=== PATIENT | male | born 1970 | race Caucasian/White ===

== ENCOUNTER 2016-05-07 00:41 | Emergency (ER) | payer OTHER ==
[2016-05-07] MEDS ORDERED: MORPHINE SULFATE 10 MG/ML INJ IV ONE ×4 (03:24→07:17)
--- NOTE | 2016-05-07 03:28 | ER Document Report ---
[id number] 30 DAYS: No <RICARDO ORNELAS - Last Filed: 05/08/16 02:15> - General Chief Complaint: Fall Injury Stated Complaint: FALL Notes: Patient is a 45-year-old male presents the ambulance after he slipped in his right yard. He has been drinking a cold today. He does not drink every day. He complains he cannot feels legs. He has difficulty moving his hands as well. He also says he has a lot of difficulty moving his legs. He says "I think I' m paralyzed". He complains of pain mainly in his lower back. No other complaints at this time. He does not take blood thinners. (RICARDO ORNELAS) - Related Data Allergies/Adverse Reactions: No Known Allergies Allergy (Verified 03/20/16 12:33) Past Medical History - Social History Smoking Status: Unknown if Ever Smoked Frequency of alcohol use: Occasional Drug Abuse: None Family History: Reviewed & Not Pertinent - Past Medical History Cardiac Medical History: Denies: Hx Coronary Artery Disease, Hx Heart Attack, Hx Hypertension Pulmonary Medical History: Denies: Hx Asthma, Hx Bronchitis, Hx COPD, Hx Pneumonia Neurological Medical History: Denies: Hx Cerebrovascular Accident, Hx Seizures Musculoskeltal Medical History: Denies Hx Arthritis - Immunizations Hx Diphtheria, Pertussis, Tetanus Vaccination: Yes <RICARDO ORNELAS - Last Filed: 05/08/16 02:15> Review of Systems <BRENDON SYLVESTER - Last Filed: 05/07/16 10:18> <RICARDO ORNELAS - Last Filed: 05/08/16 02:15> - Review of Systems Notes: My Normal Review Basic REVIEW OF SYSTEMS: CONSTITUTIONAL : Denies fever, chills, or sweats. Denies recent illness. EENT: Denies eye, ear, throat, or mouth pain or symptoms. Denies nasal or sinus congestion. RESPIRATORY: Denies cough, cold, or chest congestion. Denies shortness of breath, difficulty breathing, or wheezing. GASTROINTESTINAL: Denies abdominal pain. Denies nausea, vomiting, or diarrhea. Denies constipation. Last BM: MUSCULOSKELETAL: Back pain SKIN: Denies rash or skin lesions. NEUROLOGICAL: Denies altered mental status or loss of consciousness. Complains of weakness in his arms and legs. Numbness in his lower extremities. ALL OTHER SYSTEMS REVIEWED AND NEGATIVE. (RICARDO ORNELAS) Physical Exam <BRENDON SYLVESTER - Last Filed: 05/07/16 10:18> <RICARDO ORNELAS - Last Filed: 05/08/16 02:15> - Vital signs Vitals: Temp Pulse Resp BP Pulse Ox 98.2 F 78 18 100/62 100 05/07/16 01:04 05/07/16 01:04 05/07/16 01:04 05/07/16 01:04 05/07/16 01:04 (BRENDON SYLVESTER) (RICARDO ORNELAS) - Notes Notes: General Appearance: Well nourished, alert, cooperative, no acute distress, moderate obvious discomfort. Vitals: reviewed, See vital signs table. Head: no swelling or tenderness to the head Eyes: PERRL, EOMI, Conjuctiva clear Mouth: No decreasd moisture Neck: Supple, some mild midline neck tenderness to palpation. No step-offs or deformities,. Lungs: No wheezing, No rales, No rhonci, No accessory muscle use, good air exchange bilaterally. Heart: Normal rate, Regular rythm, No murmur, no rub Abdomen: Normal BS, soft, No rigidity, No abdominal tenderness, No guarding, no rebound, no abdominal masses, no organomegaly Back: Pain palpation around L3-L4 or. Patient also has pain to palpation of the thoracic lumbar junction. No obvious step-offs or deformity is. Extremities: strength 5/5 in all extremities, good pulses in all extremities, no swelling or tenderness in the extremities, no edema. Skin: warm, dry, appropriate color, no rash Neuro: speech clear, oriented x 3, normal affect, responds appropriately to questions. Patient's is unable to squeeze his fingers are moving the fingers of his hands. He is able to slightly raise his arms off the bed with his elbows flexed position. He is unable to fully extend them. Patient has very mild sensation with heart pressure was lower extremities. He has no sensation to prick with 18-gauge needle to the toes. He is able to wiggle the left told is a little bit. He is unable to move the right lower extremity at all. Patellar reflexes are absent. (RICARDO ORNELAS) Course - Diagnostic Test Radiology reviewed: Image reviewed, Reports reviewed <BRENDON SYLVESTER - Last Filed: 05/07/16 10:18> <RICARDO ORNELAS - Last Filed: 05/08/16 02:15> - Re-evaluation Re-evalutation: 05/07/16 09:56 MRI was consistent with a cord contusion in the cervical region with edema, waiting for him to return for transfer 05/07/16 10:13 [facility] paged , patient still has neuro deficits 05/07/16 10:15 Dr Taveras accepts as trauma transfer 05/07/16 10:18 05/07/16 10:19 (BRENDON SYLVESTER) 05/07/16 04:[address] scans are negative for any fracture. I did reevaluate the patient. He still has the same weakness in his upper and lower extremities. He still can only feel pressure type sensation in lower extremities. Cannot feel pinprick touch. I did talk to him about transfer for MRI and neurosurgical evaluation. Patient says he prefers to stay here to get his MRI. I informed him that keeping him here could delay his MRI.I Also informed him that if the MRI is positive or negative and he is still having symptoms, he would still to be transferred. Patient understands this and still requests to stay here for the MRI and refuses transfer at this time. (RICARDO ORNELAS) - Vital Signs Vital signs: Temp Pulse Resp BP Pulse Ox 98.8 F 82 18 105/71 94 05/07/16 10:36 05/07/16 10:36 05/07/16 10:36 05/07/16 10:36 05/07/16 10:36 (BRENDON SYLVESTER) (RICARDO ORNELAS) - Transfer of Care Notes: 05/08/16 02:14 Patient was checked out to Dr. Sylvester pending results of MRI. MRI did show a spinal cord contusion which would explain his symptoms. Patient was transferred to a facility with neurosurgical capability. I did keep the patient in the cervical collar the entire time he was in the ER. Dictation of this chart was performed using voice recognition software; therefore, there may be some unintended grammatical errors. (RICARDO ORNELAS) Discharge <BRENDON SYLVESTER - Last Filed: 05/07/16 10:18> <RCIARDO ORNELAS - Last Filed: 05/08/16 02:15> - Discharge Clinical Impression: Spinal cord injury, Weakness Condition: Serious Disposition: [facility]
[2016-05-07] MEDS ORDERED: FOLIC ACID INJ 5 MG/1 ML 10 ML VIAL IV ONE (04:58)
[2016-05-07] MEDS ORDERED: THIAMINE HCL 100 MG in NORMAL SALINE 50 ML IV ONE (04:58)
[2016-05-07] MEDS ORDERED: THIAMINE HCL INJ 200 MG/2 ML VIAL ONE (05:32)
[2016-05-07] MEDS ORDERED: NORMAL SALINE 1000 ML 1,000 ML IV ONE (10:14)
[2016-05-07] MEDS ORDERED: HYDROMORPHONE HCL INJ/PF 2 MG/ML AMPULE IV ONE (10:14)
[2016-05-07 10:37] VITALS: BP 105/71
== END 2016-05-07 11:05 | disposition short-term general hospital (02) ==
LOC: ER 00:41
DX: S14.159A Other incomplete lesion at unspecified level of cervical spinal cord, initial encounter (principal); M54.5 Low back pain; X58.XXXA Exposure to other specified factors, initial encounter
CPT/HCPCS: 96376; 99285; 96361; 96374; 96375; 72141; 70450; 72125; 72128; 72131; J3490; J2270; J1170; J3411; J7030

== ENCOUNTER 2016-09-04 09:02 | Emergency (ER) | payer OTHER ==
[2016-09-04 09:09] VITALS: BP 118/83
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
== END 2016-09-04 10:02 | disposition home or self-care (01) ==
LOC: ER 09:02
DX: Z76.0 Encounter for issue of repeat prescription (principal); F17.210 Nicotine dependence, cigarettes, uncomplicated
CPT/HCPCS: 99281

== ENCOUNTER → 2016-09-04 | Outpatient (CLI) | payer OTHER ==
[2016-09-04 12:33] LABS: BLOOD UREA NITROGEN 17 mg/dL (7-20); CALCIUM 10.2 mg/dL (8.4-10.2); CREATININE RESULT 0.93 mg/dL (0.52-1.25); GLUCOSE 90 mg/dL (75-110)
[2016-09-04 12:34] LABS: ALANINE AMINOTRANSFERASE 32 U/L (21-72); ALBUMIN 4.4 g/dL (3.5-5.0); ALKALINE PHOSPHATASE 77 U/L (38-126); ANION GAP 10 (5-19); ASPARTATE AMINO TRANSFERASE 22 U/L (17-59); BILIRUBIN,DIRECT 0.3 mg/dL (0.0-0.4); BILIRUBIN,TOTAL 0.4 mg/dL (0.2-1.3); CARBON DIOXIDE 24 mmol/L (22-30); CHLORIDE 105 mmol/L (98-107); CHOLESTEROL 229.35 mg/dL (0-200); Direct HDL 44 mg/dL (>40); POTASSIUM 4.6 mmol/L (3.6-5.0); SODIUM 139.1 mmol/L (137-145); TOTAL PROTEIN 7.7 g/dL (6.3-8.2); TRIGLYCERIDES 316 mg/dL (<150)
[2016-09-04 12:44] LABS: DIRECT LDL 47 mg/dL (<100)
[2016-09-04 12:46] LABS: VLDL CHOLESTEROL 63.2 mg/dL (10-31)
== END ==
LOC: OD 10:32
PROVIDERS: ATTEND Student in an Organized Health Care Education/Training Program
DX: Z13.220 Encounter for screening for lipoid disorders (principal)
CPT/HCPCS: 36415; 80053; 80061

== ENCOUNTER 2016-11-19 09:40 | Emergency (ER) | payer OTHER ==
[2016-11-19 09:50] VITALS: BP 122/90
--- NOTE | 2016-11-19 10:38 | ER Document Report ---
ED Neck/Back Problem - General Chief Complaint: Back Pain Stated Complaint: LOWER BACK PAIN Time Seen by Provider: 11/19/16 10:22 Mode of Arrival: Ambulatory Information source: Patient Notes: 45-year-old male presents to ED for complaint of low back pain that is increased over the last few days. He has a history of chronic back pain low back where radiating down to his legs up his neck. He claims he was seen in pain management and had disagreement with them and is no longer with pain management he states he has a appointment with his surgeon who did his surgery in April. He states he came into the hospital to get some x-rays for the surgeon and decided that maybe he would stop by the ER and get some pain medicine while he was here. When I informed him that we do not treat chronic pain with narcotics he stated that he might as well go on home. He agreed to let me assessed him and write his discharge papers. TRAVEL OUTSIDE OF THE [place] IN LAST 30 DAYS: No - HPI Patient complains to provider of: Pain, Neck, Lower back. No: Injury Onset: Other - Chronic Onset: Chronic Timing: Still present Quality of pain: Sharp, Throbbing Severity: Moderate Pain Level: 4 Recent injury: No Associated symptoms: Radiation to leg, Lower back pain Exacerbated by: Movement of trunk, Sitting position Relieved by: Nothing Similar symptoms previously: Yes Recently seen / treated by doctor: No - Related Data Allergies/Adverse Reactions: No Known Allergies Allergy (Verified 09/04/16 09:06) Past Medical History - General Information source: Patient - Social History Smoking Status: Former Smoker Cigarette use (# per day): No Chew tobacco use (# tins/day): No Smoking Education Provided: No Frequency of alcohol use: None Drug Abuse: None Lives with: Family Family History: Reviewed & Not Pertinent Patient has suicidal ideation: No Patient has homicidal ideation: No - Past Medical History Cardiac Medical History: Reports: None Pulmonary Medical History: Reports: None EENT Medical History: Reports: None Neurological Medical History: Reports: None Endocrine Medical History: Reports: None Renal/ Medical History: Reports: None Malignancy Medical History: Reports None GI Medical History: Reports: None Musculoskeltal Medical History: Reports Hx Musculoskeletal Trauma Skin Medical History: Reports None Psychiatric Medical History: Reports: None Traumatic Medical History: Reports: None Infectious Medical History: Reports: None Past Surgical History: Reports: Hx Orthopedic Surgery - spinal fusion - Immunizations Immunizations up to date: Yes Hx Diphtheria, Pertussis, Tetanus Vaccination: Yes Review of Systems - Review of Systems Constitutional: No symptoms reported EENT: No symptoms reported Cardiovascular: No symptoms reported Respiratory: No symptoms reported Gastrointestinal: No symptoms reported Genitourinary: No symptoms reported Male Genitourinary: No symptoms reported Musculoskeletal: No symptoms reported Skin: No symptoms reported Hematologic/Lymphatic: No symptoms reported Neurological/Psychological: No symptoms reported -: Yes All other systems reviewed and negative Physical Exam - Vital signs Vitals: Temp Pulse Resp BP Pulse Ox 97.6 F 110 H 18 122/90 H 98 11/19/16 09:45 11/19/16 09:45 11/19/16 09:45 11/19/16 09:45 11/19/16 09:45 Interpretation: Normal - General General appearance: Appears well, Alert - HEENT Head: Normocephalic, Atraumatic Eyes: Normal Pupils: PERRL - Respiratory Respiratory status: No respiratory distress Chest status: Nontender Breath sounds: Normal Chest palpation: Normal - Cardiovascular Rhythm: Regular Heart sounds: Normal auscultation Murmur: No - Abdominal Inspection: Normal Distension: No distension Bowel sounds: Normal Tenderness: Nontender Organomegaly: No organomegaly - Back Back: Normal, Nontender. No: Tender, Deformity/step-off, CVA tenderness, Vertebra tenderness, Scars, Scoliosis, Wounds - Extremities General upper extremity: Normal inspection, Nontender, Normal color, Normal ROM , Normal temperature General lower extremity: Normal inspection, Nontender, Normal color, Normal ROM , Normal temperature, Normal weight bearing. No: Hermilo's sign - Neurological Neuro grossly intact: Yes Cognition: Normal Orientation: AAOx4 Miah Coma Scale Eye Opening: Spontaneous Miah Coma Scale Verbal: Oriented Gray Coma Scale Motor: Obeys Commands Gray Coma Scale Total: 15 Speech: Normal Motor strength normal: LUE, RUE, LLE, RLE Sensory: Normal - Psychological Associated symptoms: Normal affect, Normal mood - Skin Skin Temperature: Warm Skin Moisture: Dry Skin Color: Normal Course - Re-evaluation Re-evalutation: 11/19/16 10:42 Patient states that he does not want to wait around for his discharge paper he did get up and start to walk out but the nurse was able to talk to him before he left and he did sign his discharge papers. Patient states he will go and talk with his back surgeon. He states he still having too much pain from his surgery in April that this is too soon to be off of antibiotics. He states that Dr. Franco had recommended he go to [facility] and he found that they just were trying to get people off of medications so he did not want to go there. I explained to the patient that he think might could help him get so that he did not need as many narcotics and they might could also help him control his narcotics he states he did not think he wanted to do that. - Vital Signs Vital signs: Temp Pulse Resp BP Pulse Ox 97.6 F 110 H 18 122/90 H 98 11/19/16 09:45 11/19/16 09:45 11/19/16 09:45 11/19/16 09:45 11/19/16 09:45 Discharge - Discharge Clinical Impression: Chronic back pain greater than 3 months duration Chronic pain Qualifiers: Chronic pain type: other chronic pain Qualified Code(s): G89.29 - Other chronic pain Condition: Stable Disposition: HOME, SELF-CARE Additional Instructions: LOW BACK PAIN: Three out of every four people will have an episode of disabling back pain during their lifetime. Most commonly the pain is due to straining of the muscles and ligaments in the low back. Usual treatment includes: (1) Rest on a firm surface. Avoid lying on your stomach. (2) Ice pack the painful area. After a few days, gentle heat may be used intermittently to relax the area, or ice packs can be continued. (3) Medication may be needed -- muscle relaxers and antiinflammatory medicines are commonly used. (4) As the back improves, exercises are prescribed to strengthen the back and abdominal muscles. Your doctor will advise you on the proper care for your back at each stage in your recovery. You may be better in a few days -- or healing may take several weeks. If new symptoms of a "herniated disc" (radiation of pain, numbness, or tingling down the back of the leg or weakness in the leg) occur, you should be re-examined. Further testing may be necessary. Chronic Pain Control Stress, inactivity, and depression make pain more severe regardless of the cause of the pain. Stress and poor physical condition can cause pain such as headaches and backache. Relaxation: Rest in a quiet place with your eyes closed for 20 minutes twice daily. Concentrate on a pleasant image, or simply "feel" your breathing. Clear your mind. Stress management: Deal with your "stressors." Either take action, or eliminate the stressor from your life. Don't let things hang over you. Accept those things you can't change. Nutrition: Eat small, balanced meals -- don't skip, don't overeat. Meals should be high-carbohydrate, low-sugar, low-fat. Exercise: Exercise helps painful conditions and eases stress. Get 30 minutes of moderate exercise, five days a week. Do an activity that does not flare your pain. Precautions: Pain which continues to disrupt daily activities, or which changes in nature, requires a medical evaluation. Pain Clinic referral is available. We do not manage chronic pain in the Emergency Department. We will try to appropriately help you through an acute flare of your chronic painful condition , but for on-going chronic pain that does not improve, you will need to see your private doctor or paint spraying machine operator helper. We do not provide repeated medication management of chronic painful conditions. If you wish, we can provide the name of local pain management physicians. ICE PACKS: Apply ice packs frequently against the painful area. Many different schedules are recommended, such as "20 minutes on, 20 minutes off" or "one hour ice, two hours rest." If you need to work, you may need to go longer between ice treatments. You should plan to have the area ice packed AT LEAST one fourth of the time. The ice should be applied over the wrap, tape, or splint, or over a layer of cloth -- not directly against the skin. Some ice bags have a built-in cloth and can be put directly on the skin. WARM PACKS: After approximately two days, apply gentle heat (such as a heating pad or hot water bottle) for about 20 to 30 minutes about every two hours -- at least four times daily. Warmth and elevation will help you make a more rapid recovery , and will ease the pain considerably. Do not use HOT heat, and never apply heat for longer than 30 minutes. The continuous heat can invisibly damage skin and muscles -- even when no burn is seen on the surface. Damaged muscles can make you MORE sore. FOLLOW-UP CARE: If you have been referred to a physician for follow-up care, call the physician s office for an appointment as you were instructed or within the next two days. If you experience worsening or a significant change in your symptoms, notify the physician immediately or return to the Emergency Department at any time for re-evaluation. Forms: Elevated Blood Pressure, Smoking Cessation Education
== END 2016-11-19 10:37 | disposition home or self-care (01) ==
LOC: ER 09:40
DX: M54.9 Dorsalgia, unspecified (principal); M54.5 Low back pain; G89.29 Other chronic pain; Z87.891 Personal history of nicotine dependence
CPT/HCPCS: 99283

== ENCOUNTER → 2016-11-19 | Outpatient (CLI) | payer OTHER ==
--- NOTE | 2016-11-19 10:08 | RADIOLOGY REPORT (SQ) ---
EXAM DESCRIPTION: C SP 3 VWS OR LESS COMPLETED DATE/TIME: 11/19/2016 9:25 am REASON FOR STUDY: CERVICALGIA,LOW BACK PAIN M54.5 LOW BACK PAIN M54.2 CERVICALGIA COMPARISON: CT cervical spine 05/07/2016 MRI cervical spine 05/07/2016 NUMBER OF VIEWS: Two views TECHNIQUE: Lateral flexion, lateral extension radiographic images acquired of the cervical spine. LIMITATIONS: None. FINDINGS: Patient is post wide dorsal decompression from C3 to the T1 level. There are dorsal fixat ion plates with transpedicular screws at C3-C4 C5 and C6, and an anchor along the inferior surface po sterior elements at T1. There is straightening of cervical lordosis related to hardware. Minimal patient change in position between flexion and extension. No gross instability at the craniocervical junction, C1-2 or C2-3. N o instability or movement from C3 through T1. There is disc space loss of height with anterior osteophyte formation at C5-6 and C6-7. Mild anterio r osteophyte formation without disc space loss of height at C3-4, C4-5, and C7-T1. No lucency around the hardware worrisome for loosening IMPRESSION: No instability on flexion/extension Post wide dorsal cervical canal decompression TECHNICAL DOCUMENTATION: JOB ID: [id number] 1964 [employer]- All Rights Reserved
--- NOTE | 2016-11-19 10:10 | RADIOLOGY REPORT (SQ) ---
EXAM DESCRIPTION: L SPINE FLEX/EXT ONLY COMPLETED DATE/TIME: 11/19/2016 9:25 am REASON FOR STUDY: CERVICALGIA,LOW BACK PAIN M54.5 LOW BACK PAIN M54.2 CERVICALGIA COMPARISON: CT lumbar spine 05/07/2016 NUMBER OF VIEWS: Lateral flexion, lateral extension images TECHNIQUE: Lateral lumbar spine flexion image, lateral lumbar spine extension image LIMITATIONS: None. FINDINGS: MINERALIZATION: Normal. SEGMENTATION: Normal. No transitional anatomy. ALIGNMENT: Normal. FLEXION/EXTENSION: No instability. VERTEBRAE: Maintained height. No fracture or worrisome bone lesion. DISCS: Preserved height. No significant osteophytes or end plate irregularity. POSTERIOR ELEMENTS: Pedicles and facets are intact. No pars defect or posterior arch defects. HARDWARE: None in the spine. OTHER: No other significant finding. IMPRESSION: NO SIGNIFICANT FINDING IN THE SPINE. NO INSTABILITY ON FLEXION/EXTENSION. TECHNICAL DOCUMENTATION: JOB ID: [id number] [employer]- All Rights Reserved
== END ==
LOC: OD 08:48
PROVIDERS: ATTEND Physician Assistant Surgical
DX: M54.2 Cervicalgia (principal); M54.5 Low back pain
CPT/HCPCS: 72040; 72120

== ENCOUNTER → 2017-05-29 | Outpatient (CLI) | payer MEDICAID ==
--- NOTE | 2017-05-30 17:22 | RADIOLOGY REPORT (SQ) ---
EXAM DESCRIPTION: MRI CERVICAL SPINE COMBO COMPLETED DATE/TIME: 05/29/2017 3:50 pm REASON FOR STUDY: LEG PARESTHESIA/HX OF C SPINE SURGERY R20.2 PARESTHESIA OF SKIN Z98.890 OTHER SP ECIFIED POSTPROCEDURAL STATES COMPARISON: 05/07/2016 TECHNIQUE: Sagittal and Axial imaging includes T1, T2, STIR and gradient echo sequences. T1 post kt olinium sequences. CONTRAST TYPE AND DOSE: 15 mL Multihance. RENAL FUNCTION: None required. The patient is less than 50 years old. LIMITATIONS: Motion. Susceptibility artifact. FINDINGS: There has been extensive surgery with dorsal decompression and interlaminar fixation with kimberly and screws C3 through T1. Within the limitations there is good decompression. Approximately 5 m m diameter focus of encephalomalacia in the cord at the level of C3-4. Cord signal is otherwise norm al. No epidural fluid collection. No nerve root clumping. No evidence of recurrent disc herniation . IMPRESSION: Extensive postsurgical changes with good decompression. Focal area of encephalomalacia in the cord at C3-4. No evidence of recurrent disc herniation. COMMENT: None. TECHNICAL DOCUMENTATION: JOB ID: [id number] [employer]- All Rights Reserved Reading location - IP/workstation name: [email or web address]
--- NOTE | 2017-05-30 17:24 | RADIOLOGY REPORT (SQ) ---
EXAM DESCRIPTION: MRI LUMBAR SPINE WITHOUT COMPLETED DATE/TIME: 05/29/2017 3:50 pm REASON FOR STUDY: LEG PARESTHESIA/HX OF C SPINE SURGERY R20.2 PARESTHESIA OF SKIN Z98.890 OTHER SP ECIFIED POSTPROCEDURAL STATES COMPARISON: None. TECHNIQUE: Sagittal and Axial imaging includes T1, T2, STIR and gradient echo sequences. Coronal T2/ HASTE imaging. LIMITATIONS: Motion. FINDINGS: VISUALIZED UPPER ABDOMEN: Limited evaluation. No acute or suspicious findings suggested. SEGMENTATION: No transitional anatomy. The lowest well-developed disc space is labeled L5-S1. ALIGNMENT: Anatomic. VERTEBRAE: Intact. BONE MARROW: Normal. No marrow replacement or reactive changes. DISC SIGNAL: Normal. No significant abnormal signal or loss of height. POSTERIOR ELEMENTS: Intact. HARDWARE: None in the spine. CORD AND CONUS: Normal in size and signal intensity. Conus at the appropriate level. SOFT TISSUES: No aortic aneurysm seen. No bulky retroperitoneal adenopathy or mass. No paraspinal mas s or fluid. L1-L2: No significant spinal stenosis or exit foraminal stenosis. L2-L3: No significant spinal stenosis or exit foraminal stenosis. L3-L4: Disc bulge and facet arthropathy. No significant spinal stenosis or exit foraminal stenosis. L4-L5: Disc bulge and facet arthropathy. No significant spinal stenosis or exit foraminal stenosis. L5-S1: Disc bulge and facet arthropathy. Mild neural foraminal narrowing bilaterally. No significan t spinal stenosis. LOWER THORACIC: Incompletely imaged. No stenosis seen. SACRUM: Visualized upper sacrum intact. OTHER: No other significant findings. IMPRESSION: Facet arthropathy. No significant spinal stenosis. TECHNICAL DOCUMENTATION: JOB ID: [id number]- All Rights Reserved Reading location - IP/workstation name: [email or web address]
== END ==
LOC: RAD 14:10
PROVIDERS: ATTEND Internal Medicine
DX: R20.2 Paresthesia of skin (principal); Z98.890 Other specified postprocedural states; M12.88 Other specific arthropathies, not elsewhere classified, other specified site
CPT/HCPCS: 72156; 72148; A9577

== ENCOUNTER → 2018-02-04 | Outpatient (CLI) | payer MEDICAID ==
--- NOTE | 2018-02-04 12:54 | RADIOLOGY REPORT (SQ) ---
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 TECHNIQUE: AP, lateral and odontoid radiographic images acquired of the cervical spine. LIMITATIONS: None. FINDINGS: MINERALIZATION: Normal. ALIGNMENT: Straightening of the normal cervical lordosis. VERTEBRAE: Vertebral bodies of normal height. DISCS: Moderate multilevel disc space height loss and osteophytosis with early post fusion cervical a nkylosis. HARDWARE: Redemonstrated posterior cervical fusion hardware from C3 through T1. SOFT TISSUES: No masses or calcifications. Lung apices clear. OTHER: No other significant finding. IMPRESSION: Redemonstrated postoperative findings of C3 through T1 laminectomy and posterior cervica l fusion. No evidence of hardware fracture or loosening. TECHNICAL DOCUMENTATION: JOB ID: [id number] [employer]- All Rights Reserved Reading location - IP/workstation name: [email or web address]
== END ==
LOC: RAD 11:54
PROVIDERS: ATTEND Neurological Surgery
DX: S12.43 Unspecified traumatic spondylolisthesis of fifth cervical vertebra (principal); M96.1 Postlaminectomy syndrome, not elsewhere classified; X58.XXXD Exposure to other specified factors, subsequent encounter
CPT/HCPCS: 72040

== ENCOUNTER → 2018-02-23 | Outpatient (CLI) | payer MEDICAID ==
--- NOTE | 2018-02-23 13:09 | EKG REPORT ---
SEVERITY:- NORMAL ECG - SINUS RHYTHM : Confirmed by: Heath Landry MD 23-Feb-2018 13:09:09
== END ==
LOC: OD 11:59
PROVIDERS: ATTEND Pain Medicine Interventional Pain Medicine
DX: Z13.6 Encounter for screening for cardiovascular disorders (principal)
CPT/HCPCS: 93005; 93010